=== PATIENT | male | born 1985 | race Hispanic/Latino ===

== ENCOUNTER 2025-07-07 22:47 | Emergency (ER) | payer OTHER, SELFPAY ==
[2025-07-07 23:10] VITALS: BP 139/72; PULSE 66; RESP 15; TEMP 36.9; O2SAT 99; BMI 29.5
== END 2025-07-08 02:41 | disposition left against medical advice (07) ==
PROVIDERS: Emergency Provider Emergency Medicine
DX: Z53.21 Procedure and treatment not carried out due to patient leaving prior to being seen by health care provider (principal)
CPT/HCPCS: 99281